=== PATIENT | female | born 1970 | race Caucasian/White ===

== ENCOUNTER 2017-06-29 12:05 | Emergency (ER) | payer OTHER ==
[2017-06-29 12:12] VITALS: RESP 18; TEMP 98.4
--- NOTE | 2017-06-29 12:32 | CPEKG ---
Heart Rate: 68 RR Interval: 882 P-R Interval: 164 QRSD Interval: 86 QT Interval: 384 QTC Interval: 409 P Eden: 17 QRS Eden: 111 T Wave Eden: 50 EKG Severity - BORDERLINE ECG - EKG Impression: SINUS RHYTHM EKG Impression: RIGHT AXIS DEVIATION EKG Impression: CONSIDER ANTERIOR INFARCT Electronically Signed By: Kathe Loaiza 29-Jun-2017 14:25:14
--- NOTE | 2017-06-29 13:22 | EDPHY ---
H & P Stated Complaint: palpitations/feels heart is racing/over months Time Seen by Provider: 06/29/17 12:51 HPI/ROS: CHIEF COMPLAINT: Palpitations HISTORY OF PRESENT ILLNESS: This is a 46-year-old female with hypothyroidism who presents complaining of fatigue and intermittent palpitations. She states that her heart seems to skip a beat on occasion. This is occurring with increasing frequency. She has not take any illicit drugs or stimulant medications. She notices this twice a week on average and had an episode last night around 3 in the morning. That episode lasted about 2 hours and was accompanied by mild shortness of breath. She is not currently experiencing palpitations but feels as if her heart is racing. She also reports ongoing dizziness that is unchanged. It is not a spinning sensation but rather a lightheadedness. She was seen in November with similar symptoms at that time had an elevated TSH . She increased her levothyroxine on the advice of her test manager. She is currently taking 75 mcg 6 days a week and 88 mcg 1 day a week. She had her TSH checked on June 22, 1 week ago, and was just over 8 at that time with normal T3, T4, and free. She denies chest pain. She is not currently short of breath. She has not had chest trauma. She did wear a Holter monitor in the past, about 1 year ago, no irregularities were noted. She was monitored for 2 days. REVIEW OF SYSTEMS: A ten point review of systems was performed and is negative with the exception of the items mentioned in the HPI. Past medical history: Hypothyroidism Past surgical history: Thyroidectomy Social history: She is . She does not work outside the home. No tobacco products. No stimulant medications. General Appearance: Alert. Vital signs reviewed. Blood pressure 111/70. Eyes: Pupils equal and round, no conjunctival injection, no discharge. Anicteric. ENT, Mouth: Mucous membranes are moist, no oropharyngeal erythema or edema. Neck: No lymphadenopathy, supple. Respiratory: Lungs are clear to auscultation; no wheezes, rales, or rhonchi. Cardiovascular: Regular rate and rhythm; no murmur, rub, or gallop. Gastrointestinal: Abdomen is soft and nontender, no masses or organomegaly, bowel sounds normal. Skin: Warm and dry, no rashes on exposed skin, normal color. Back: Nontender to palpation over the thoracolumbar spine. No CVAT. Extremities: No lower extremity edema, no calf tenderness or swelling. Neurological: Alert and oriented. Moving all four extremities easily and equally. Psychiatric: Normal affect. - Personal History LMP (Females 10-55): 1-7 Days Ago Current Tetanus/Diphtheria Vaccine: No - Medical/Surgical History Hx Asthma: No Hx Chronic Respiratory Disease: No Hx Diabetes: No Hx Cardiac Disease: No Hx Renal Disease: No Hx Cirrhosis: No Hx Alcoholism: No Hx HIV/AIDS: No Hx Splenectomy or Spleen Trauma: No Other PMH: thyroid cancer and thyroidectomy. benign lumpectomy - Social History Smoking Status: Never smoked Constitutional: Initial Vital Signs Temperature (C) 36.9 C 06/29/17 12:10 Heart Rate 88 06/29/17 12:10 Respiratory Rate 18 06/29/17 12:10 Blood Pressure 111/70 06/29/17 12:10 O2 Sat (%) 95 06/29/17 12:10 O2 Delivery Mode Room Air Allergies/Adverse Reactions: flu vaccine Allergy (Uncoded 06/29/17 12:09) Home Medications: Medication Instructions Recorded Levothyroxine [Synthroid 88 mcg 88 mcg PO DAILY #30 tab 11/30/15 (*)] Medical Decision Making ED Course/Re-evaluation: 12 lead EKG is interpreted in Trace master View by emergency department physician. She has not had any ectopy or tachyarrhythmia while in the department. TSH is over 12. She prefers to adjust her thyroid medications on her own. I suspect that this could be part of the problem. Blood work including CBC and chemistries is otherwise within normal limits. She is not febrile and I do not suspect an infection. She has not been tachycardic and I do not think volume status is an issue. There is nothing to suggest ongoing blood loss. Troponin was also checked and she is reassured that it is normal. - Data Points Laboratory Results: Laboratory Results 06/29/17 12:35 06/29/17 12:35 Departure - Departure Disposition: Home, Routine, Self-Care Clinical Impression: Palpitations Condition: Good Instructions: Palpitations (ED) Additional Instructions: We have not detected an irregularity in your heart beat during your stay in the emergency department. Your laboratory work, including troponin to assess your heart muscle, looks fine. TSH is 12.3. As we discussed, I recommend increasing your levothyroxine. Follow up at [facility] and with Dr. Cárdenas. Referrals: Charlene Cárdenas MD [Primary Care Provider] - As per Instructions Desire Schaffer PA [Physician Drive Worker] - As per Instructions
[2017-06-29 13:50] LABS: ADD DIFF? NO; ADD MORPH? NO; ADD SCAN? NO; ATYPICAL LYMPHOCYTE FLAG 0 (0-99); FRAGMENT RBC FLAG 0 (0-99); HEMATOCRIT 42.5 % (38.0-47.0); HEMOGLOBIN 14.6 g/dL (12.6-16.3); LEFT SHIFT FLG 0 (0-99); LIPEMIA HEMOLYSIS FLAG 90 (0-99); MEAN CELL HEMOGLOBIN 33.4 pg (27.9-34.1); MEAN CELL HEMOGLOBIN CONCENTR. 34.4 g/dL (32.4-36.7); MEAN CELL VOLUME 97.3 fL (81.5-99.8); MEAN PLATELET VOLUME 10.3 fL (8.7-11.7); PLATELET CLUMPS FLAG 0 (0-99); PLATELET COUNT 252 10^3/uL (150-400); RED BLOOD CELL COUNT 4.37 10^6/uL (4.18-5.33); RED CELL DISTRIBUTION WIDTH 12.3 % (11.5-15.2)
[2017-06-29 13:58] LABS: ANION GAP 11 mEq/L (8-16); CALCIUM 9.4 mg/dL (8.5-10.4); CARBON DIOXIDE 24 mEq/l (22-31); CHLORIDE 104 mEq/L (97-110); CREATININE 0.9 mg/dL (0.6-1.0); GLOMERULAR FILTRATION RATE > 60; GLUCOSE 96 mg/dL (70-100); SODIUM 139 mEq/L (134-144)
[2017-06-29 14:09] LABS: TROPONIN I < 0.012 ng/mL (0.000-0.034)
[2017-06-29 15:24] VITALS: BP 105/66; PULSE 72; O2SAT 96
== END 2017-06-29 15:24 | disposition home or self-care (01) ==
DX: R00.2 Palpitations (principal); Z85.850 Personal history of malignant neoplasm of thyroid